=== PATIENT | female | born 2000 | race Two or more races ===

== ENCOUNTER 2021-01-28 10:19 | Emergency (ER) | payer OTHER ==
[~2021-01-28] VITALS: Ht 160 cm; Wt 92.1 kg
[2021-01-28] MEDS ORDERED: ZITHROMAX500 MG PO (14:09)
== END 2021-01-28 14:34 | disposition home or self-care (01) ==
LOC: ER 10:19
DX: R42 Dizziness and giddiness (principal); R53.81 Other malaise; B96.0 Mycoplasma pneumoniae [M. pneumoniae] as the cause of diseases classified elsewhere

== ENCOUNTER 2021-06-08 10:49 | Emergency (ER) | payer OTHER ==
[~2021-06-08] VITALS: Ht 160 cm; Wt 90.7 kg
[~2021-06-08 10:49] MED LIST: ZITHROMAX500 MG PO
== END 2021-06-08 14:32 | disposition home or self-care (01) ==
LOC: ER 10:49
DX: U07.1 COVID-19 (principal)